=== PATIENT | male | born 1975 | race Caucasian/White ===

== ENCOUNTER 2021-05-31 11:42 | Emergency (ER) | payer SELFPAY ==
[2021-05-31 11:53] VITALS: BP 118/81; PULSE 83; RESP 22; TEMP 36.6; O2SAT 100; BMI 28.5
--- NOTE | 2021-05-31 13:42 | USCV_ITS ---
Chau Ramosnaomie Age: 46 Gender: M : 1975 Exam Date: 05/31/2021 13:57 Ordering Phys: Maria Fernanda Landrum Technologist: Hillary Elmore [place] [facility] [place]ication: IVDU, LLE PAIN, SWELLING, AND DISCOLORATION HISTORY: Lower extremity swelling. Lower extremity pain. PROCEDURES: Venous duplex imaging was performed in left lower extremities. The following venous structures were evaluated: common femoral vein, profunda vein, proximal portion of the greater saphenous vein, superficial femoral vein, and the popliteal vein. In addition, the posterior tibial and peroneal trunk were evaluated. Serial compression, augmentation maneuvers, and spectral Doppler flow evaluation were performed. FINDINGS: Normal 2-D Doppler and augmentation and compressibility throughout the lower extremity venous structures. Additional imaging through the proximal calf veins also reveals no thrombus. Limited evaluation of the greater saphenous vein is patent with no thrombus. Left GSV distal thigh is non-compressible. CONCLUSIONS No DVT left lower extremity. Superficial thrombophlebitis distal left GSV. Dr. Yuko Camp DO (Electronically Signed) Final Date: 31 May 2021 16:32 Amended: 04 June 2021 15:18 C
[2021-05-31 13:43] VITALS: BP 120/92; PULSE 73; TEMP 36.6; O2SAT 99
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
[2021-05-31] MEDS: clindamycin 150 mg Capsule 600 MG PO (14:44)
[2021-05-31] MEDS: ketorolac 30 mg/mL INJ 15 MG IM (14:45)
[2021-05-31 14:47] VITALS: BP 125/97; PULSE 81; RESP 17; O2SAT 95
== END 2021-05-31 15:08 | disposition left against medical advice (07) ==
PROVIDERS: Emergency Provider Physician Assistant
DX: I80.02 Phlebitis and thrombophlebitis of superficial vessels of left lower extremity (principal); L03.116 Cellulitis of left lower limb; F15.90 Other stimulant use, unspecified, uncomplicated; Z53.21 Procedure and treatment not carried out due to patient leaving prior to being seen by health care provider
CPT/HCPCS: 93971; 96372; 99283; J1885

== ENCOUNTER 2022-04-07 11:06 | Emergency (ER) | payer SELFPAY ==
[2022-04-07] VITALS (13 sets, daily range): BP systolic 115–136; BP diastolic 74–87; PULSE 59–96; RESP 10–21; TEMP 36.8; O2SAT 94–100; BMI 28.7
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
[2022-04-07 13:18] LABS: Basophils % 0.3 %; Eosinophils # 0.1 10^3/uL (0.0-0.8); Eosinophils % 0.9 %; Hematocrit 43.2 % (42.0-52.0); Lymphocytes # 1.3 10^3/uL (0.8-4.8); Lymphocytes % 13.7 %; Mean Corpuscular HGB Conc 32.4 g/dL (30.0-36.0); Mean Corpuscular Hemoglobin 28.6 pg (28.0-34.0); Mean Corpuscular Volume 88.2 fl (80-94); Mean Platelet Volume 10.4 fL (7.4-10.4); Monocytes # 1.1 10^3/uL (0.2-0.9); Monocytes % 12.2 %; Neutrophils # 6.65 10^3/uL (1.8-7.7); Neutrophils % 72.7 %; Nucleated Red Blood Cells % 0 %; Platelet Count 176 10^3/cmm (130-400); Red Cell Distribution Width 13.7 % (12.1-15.1); White Blood Count 9.2 10^3/uL (4.0-10.0)
[2022-04-07 13:47] LABS: Alanine Aminotransferase 22 U/L (0-41); Albumin Level 3.9 g/dL (3.5-5.2); Alkaline Phosphatase 81 IU/L (40-130); Anion Gap 13.8 (5-19); Aspartate Amino Transferase 34 U/L (0-40); Blood Urea Nitrogen 11 mg/dL (6-20); Calcium 8.7 mg/dL (8.5-10.5); Carbon Dioxide 26 mmol/L (22-29); Chloride 101 mmol/L (98-107); Globulin 3.1 g/dL (1.3-4.6); Glomerular Filtration Rate 79.4 mL/min (90-130); Glucose 118 mg/dL (65-115); Osmolality Calculated 284 mOsm/kg (285-295); Potassium 3.8 mmol/L (3.5-5.1); Sodium 137 mmol/L (136-145); Total Bilirubin 0.4 mg/dL (0.15-1.2)
[2022-04-07 15:57] LABS: Add Urine Microscopic? NO; Charge for UA Resulting for Rev
[2022-04-07] MEDS: iohexol 350 mg/mL 100 mL Btl IV (16:16)
[2022-04-07 16:27] LABS: Glucose Urine UA Norm (Normal); Ketones Urine Negative (Negative); Protein Urine Neg (Negative); Specific Gravity, Urine 1.015 (1.005-1.030); Urine Appearance Clear (CLEAR); Urine Color Dark Yellow (Yellow); pH Urine 5 (5-7)
[2022-04-07 16:28] LABS: Bilirubin Urine Neg (Negative); Blood Urine Neg (Negative); Leukocyte Esterase Urine Negative (Negative); Nitrate Urine Negative (Negative); Urobilinogen Urine 1 mg/dL (Negative)
[2022-04-07] MEDS: HYDROcodone-acetaminophen 10-325 mg Tablet 1 TAB PO (17:12)
--- NOTE | 2022-04-07 17:12 | PC.NURSE ---
This [employer] computer had no scanner to scan meds and patient.
== END 2022-04-07 17:14 | disposition home or self-care (01) ==
PROVIDERS: Physician Assistant; Emergency Provider Family Medicine
DX: S80.212A Abrasion, left knee, initial encounter (principal); S80.211A Abrasion, right knee, initial encounter; S50.312A Abrasion of left elbow, initial encounter; S50.311A Abrasion of right elbow, initial encounter; V20.4XXA Motorcycle driver injured in collision with pedestrian or animal in traffic accident, initial encounter
CPT/HCPCS: 70450; 71260; 72125; 73030; 73080; 73562; 73630; 74177; 80053; 81003; 85025; 99285; Q9967